=== PATIENT | female | born 1970 | race Asian ===

== ENCOUNTER 2022-02-26 14:20 | Emergency (ER) | payer OTHER ==
[2022-02-26 15:12] VITALS: BP 137/81; PULSE 94; TEMP 98.9; BMI 27.6
[2022-02-26 17:56] LABS: EPI CELLS 6 /uL (0-25.1); HYALINE CASTS 0 /uL (0-3.1); PH,URINE 5.5 (5.0-8.0); URINE APPEARANCE CLEAR; URINE BACTERIA 24 /uL (0-1359); URINE BILIRUBIN NEGATIVE (NEGATIVE); URINE COLOR YELLOW; URINE GLUCOSE (UA) NEGATIVE (NEGATIVE); URINE KETONE NEGATIVE (NEGATIVE); URINE LEUK ESTERASE NEGATIVE (NEGATIVE); URINE NITRITE NEGATIVE (NEGATIVE); URINE PROTEIN 1+ (NEGATIVE); URINE RBC 10 /uL (0-23.9); URINE UROBILINOGEN 0.2 mg/dL (0.2-1.0); URINE WBC 1 /uL (0-25.8)
== END 2022-02-26 18:36 | disposition home or self-care (01) ==
LOC: JER 14:20
DX: H00.025 Hordeolum internum left lower eyelid (principal); R10.9 Unspecified abdominal pain
CPT/HCPCS: 81003; 84703; 87086; 99283-25

== ENCOUNTER 2024-11-09 18:10 | Emergency (ER) | payer OTHER ==
[2024-11-09 18:22] VITALS: BP 120/63; PULSE 79; RESP 18; TEMP 98; BMI 23.0
== END 2024-11-09 20:22 | disposition home or self-care (01) ==
LOC: JERFT 18:10 → JER 18:10 → JERFT 20:22
DX: H00.12 Chalazion right lower eyelid (principal); H00.14 Chalazion left upper eyelid
CPT/HCPCS: 99283-25

== ENCOUNTER 2024-12-17 17:07 | Emergency (ER) | payer OTHER ==
[2024-12-17 17:18] VITALS: BP 129/70; PULSE 80; RESP 18; TEMP 98.6; BMI 25.7
[2024-12-17] MEDS ORDERED: IBUPROFEN 400 MG TABLET (FP) PO ONE (18:56)
[2024-12-17] MEDS: IBUPROFEN 400 MG TABLET (FP) PO ONE (19:01)
[2024-12-17 19:02] LABS: ABSOLUTE IMMATURE GRANULOCYTES 0.04 x10^3/uL (0.0-0.031); BASOPHILS # 0.04 x10^3/uL (0.01-0.08); EOSINOPHIL % 4.1 % (0.7-5.8); EOSINOPHILS # 0.23 x10^3/uL (0.04-0.36); HEMATOCRIT 45.3 % (34.1-44.9); HEMOGLOBIN 14.8 g/dL (11.2-15.7); MCHC 32.7 g/dl (32.2-35.5); MEAN CELL VOLUME 88.6 fl (79.4-94.8); MEAN PLT VOLUME 9.3 fl (9.4-12.3); MONOCYTE # 0.33 x10^3/uL (0.24-0.86); MONOCYTE % 5.8 % (4.7-12.5); PLATELET COUNT 352 x10^3/uL (182-369); RDW 13.2 % (12.3-16.6)
[2024-12-17 19:17] LABS: EPI CELLS 16 /uL (0-25.1); HCG,QUALITATIVE URINE Negative; HYALINE CASTS 1 /uL (0-3.1); URINE APPEARANCE CLEAR; URINE BACTERIA 14 /uL (0-1359); URINE BILIRUBIN NEGATIVE (NEGATIVE); URINE COLOR YELLOW; URINE GLUCOSE (UA) 3+ (NEGATIVE); URINE KETONE NEGATIVE (NEGATIVE); URINE LEUK ESTERASE NEGATIVE (NEGATIVE); URINE NITRITE NEGATIVE (NEGATIVE); URINE PROTEIN NEGATIVE (NEGATIVE); URINE RBC 17 /uL (0-23.9); URINE UROBILINOGEN 0.2 mg/dL (0.2-1.0); URINE WBC 4 /uL (0-25.8)
[2024-12-17 19:27] LABS: POTASSIUM 4.5 mmol/L (3.5-5.1)
[2024-12-17 19:29] LABS: CALCIUM 9.2 mg/dL (8.5-10.1)
[2024-12-17 19:33] LABS: CREATININE 0.8 mg/dL (0.55-1.3)
[2024-12-17 19:34] LABS: BILIRUBIN,TOTAL 0.3 mg/dL (0.2-1)
[2024-12-17 20:18] LABS: HCV DIAGNOSTIC IN-HOUSE W/RFLX NON-REACTIVE (NONREACTIVE); HIV INTERPRETATION NEGATIVE (NEGATIVE)
== END 2024-12-17 20:29 | disposition home or self-care (01) ==
LOC: JER 17:07
DX: N83.202 Unspecified ovarian cyst, left side (principal); R10.2 Pelvic and perineal pain; R93.89 Abnormal findings on diagnostic imaging of other specified body structures; R31.9 Hematuria, unspecified; R30.0 Dysuria; N89.8 Other specified noninflammatory disorders of vagina
CPT/HCPCS: 36415; 76775-TC; 76830-TC; 80053; 81003; 83690; 84703; 85025; 86803; 87086; 87186; 87389; 99284-25

== ENCOUNTER 2024-12-26 19:59 | Emergency (ER) | payer OTHER ==
[2024-12-26 20:05] VITALS: BP 127/64; PULSE 78; RESP 18; TEMP 98.2; BMI 13.6
[2024-12-26] MEDS: IBUPROFEN 600 MG TABLET (FP) PO ONE (20:55)
[2024-12-26] MEDS: CEPHALEXIN MONOHYDRATE 500 MG CAPSULE (UD) PO ONE (20:56)
[2024-12-26] MEDS ORDERED: CEPHALEXIN MONOHYDRATE 500 MG CAPSULE (UD) ONE (20:56)
[2024-12-26] MEDS ORDERED: IBUPROFEN 600 MG TABLET (FP) PO ONE (20:57)
== END 2024-12-26 20:58 | disposition home or self-care (01) ==
LOC: JERFT 19:59
PROC: 089PXZZ Drainage of Left Upper Eyelid, External Approach (ICD-10-PCS; principal; 2024-12-26)
DX: H00.014 Hordeolum externum left upper eyelid (principal)
CPT/HCPCS: 67700; 99283-25